=== PATIENT | female | born 1970 | race Caucasian/White ===

== ENCOUNTER 2024-02-10 13:59 | Outpatient (CLI) | payer BC, SELFPAY ==
[2024-02-10 14:33] LABS: Basophils # 0.1 K/mm3 (0-0.2); Basophils % 1.2 % (0.1-2.0); Eosinophils # 0.1 K/mm3 (0.0-0.4); Eosinophils % 1.3 % (0.1-12.0); Hematocrit 44.2 % (37.0-47.0); Hemoglobin 14.9 g/dL (12.2-16.2); Lymphocytes # 3.1 K/mm3 (0.7-4.5); Lymphocytes % 32.9 % (10-50); Mean Corpuscular HGB Conc 33.7 g/dL (31.8-35.4); Mean Platelet Volume 8.6 fl (7.4-10.4); Monocytes # 0.4 K/mm3 (0.1-1.0); Neutrophils # 5.7 K/mm3 (1.8-7.8); Neutrophils % 60.6 % (37.0-80.0); Platelet Count 291 K/mm3 (142-424); Red Blood Count 4.51 M/mm3 (4.20-5.40); Red Cell Distribution Width 13.1 % (11.5-17.5); White Blood Count 9.4 K/mm3 (4.8-10.8)
[2024-02-10 14:56] LABS: Chloride 107 mmol/L (98-107); Potassium 4.2 mmoL/L (3.5-5.1); Sodium 133 mmol/L (136-145)
[2024-02-10 14:59] LABS: Alanine Aminotransferase 24 U/L (12-78); Albumin/Globulin Ratio 1.7 (1.1-1.8); Alkaline Phosphatase 57 U/L (38-126); Anion Gap 5.2 mEq/L (5-15); Aspartate Amino Transferase 30 U/L (14-36); Bilirubin,Total 0.6 mg/dl (0.2-1.3); Blood Urea Nitrogen 12 mg/dl (7-17); Calcium 9.4 mg/dl (8.4-10.2); Carbon Dioxide 25 mmol/L (22.0-30.0); Estimated Glomerular Filt Rate 75 ml/min (>60); GFR (African American) 90 ML/MIN (>60); Globulin 2.4 g/dL (1.3-3.2); Glucose 100 mg/dl (74-100); Iron 137 ug/dL (37-170); Total Protein,Serum 6.4 g/dl (6.3-8.2)
[2024-02-10 15:15] LABS: 25-OH Vitamin D, Total 61.3 ng/mL (30-100)
[2024-02-10 15:34] LABS: Erythrocyte Sedimentation Rate 12 mm/hr (0-30)
[2024-02-10 15:36] LABS: Ferritin 73.9 ng/ml (11.1-264)
[2024-02-10 15:54] LABS: Total Iron Binding Capacity 330 ug/dL (265-497)
[2024-02-10 16:06] LABS: C-Reactive Protein 3.6 mg/L (0-4)
[2024-02-10 16:51] LABS: Vitamin B12 774 pg/mL (239-931)
[2024-02-12 20:08] LABS: QuantiFERON-TB Gold Plus Negative (Negative)
== END 2024-02-10 23:59 | disposition home or self-care (01) ==
LOC: LAB 14:00
PROVIDERS: PCP Internal Medicine; Visit Provider Nurse Practitioner Family
DX: K50.90 Crohn's disease, unspecified, without complications (principal)
CPT/HCPCS: 36415; 80053; 82306; 82607; 82728; 83540; 83550; 85025; 85651; 86140; 86480

== ENCOUNTER 2025-02-14 13:32 | Outpatient (CLI) | payer BC, SELFPAY ==
--- OUTSIDE RECORDS SUMMARY | 2025-02-14 13:35 | XMS_ITS | Clinical Summary ---
Author Organization [facility] Address [address] [place] [address] Care Team Providers Care Head Transfer Clerk Name Role Phone Eladia Call MD Primary Care Provider [phone] Allergies Active Allergy Reactions Criticality Noted Date Comments Penicillins Rash Low 12/11/2016 Sulfa Antibiotics Rash Low 12/11/2016 Medications albuterol sulfate HFA 108 (90 Base) MCG/ACT inhaler Inhale 2 puffs. 5 Active B Complex Vitamins (RA B-Complex) tablet Take by mouth Daily. Active cetirizine (zyrTEC) 10 MG tablet Take by mouth. Activ e Progesterone (PROMETRIUM) 200 MG capsule Take 1 capsule by mouth every night at bedtime. Active testosterone micronized powder 3mg compound cream 5 Active AIR CONDITIONING SPECIALIST Thyroid 60 MG tablet Take by mouth Daily. Active methylcellulose oral powder Take by mouth Daily. Active Humira, 2 Syringe, 40 MG/0.4ML Prefilled Syringe Kit injection 5 Active Lyllana 0.075 MG/24HR patch APPLY 1 PATCH TOPICALLY TO THE SKIN 2 TIMES EVERY WEEK 5 Active Active Problems No known active problems Resolved Problems Problem Noted Date Diagnosed Date Resolved Date Sciatica associated with dis order of lumbar spine 07/11/2024 08/09/2024 Encounters Date Type Department Care Team Description 12/08/2024 12:30 PM EDT Office Visit [facility] [address] [facility] [place] [address] Juve Colindres PA-C Chronic right-sided low back pain with right-sided sciatica (Primary Dx); Sciatica associated with disorder of lumbar spine; Lumbar disc herniation 12/08/2024 Travel from Last 3 Months Family History Medical History Relation Name Comments Cancer Brother 1 Abel Pham Cancer Brother 2 Abel Jr Heart disease Father Grzegorz Anxiety disorder Mother Beth Arthritis Mother Beth Depression Mother Beth Hyperlipidemia Mother Beth Hypertension Mother Beth Breast cancer Neg Hx Ovarian cancer Neg Hx Relation Name Status Comments Brother 1 Abel Jr Alive Brother 2 Abel Jr Alive Father Grzegorz Alive Mother Beth Alive Social History Tobacco Use Types Packs/Day Years Used Date Smoking Tobacco: Never Passive Smoke Exposure: Never Smokeless Tobacco: Never Tobacco Cessation:Counseling Given: Not Answered Alcohol Use Standard Drinks/Week Comments Yes 4 (1 standard drink = 0.6 oz pur e alcohol) Abuse Screen Answer Date Recorded Feels Unsafe at Home or Work/School no 08/09/2024 Feels Threatened by Someone no 07/31 Does Anyone Try to Keep You From Having Contact with Others or Doing Things Outside Your Home? no 08/09/2024 Physical Signs of Abuse Present no 08/09/2024 Housing Stability Answer Date Recorded Current Living Arrangements home 07/31 Potentially Unsafe Housing Conditions Not on renny e 08/09/2024 Disabilities Answer Date Recorded Difficulty Concentrating, Remembering or Making Decisions no 08/09/2024 Difficulty Managing Errands Independently no 08/09/2024 Education Answer Date Recorded Help with school or training? Not on file Preferred Language Mosotho 08/02/2024 Comments No Sex and Gender Information Value Date Recorded Sex Assigned at Female 10/06/2024 9:43 AM EDT Legal Sex Female 12:33 PM EDT Gender Identity Not on file Sexual Orientation Not on file Last Filed Vital Signs Vital Sign Reading Time Taken Comments Blood Pressure 120/60 12/08/2024 12:10 PM EDT Pulse 84 08/09/2024 1:45 PM EDT Temperature 36.5 C (97.7 F) 10/13/2024 10:30 AM EDT Respiratory Rate 16 08/09/2024 1:45 PM EDT Oxygen Saturation 96% 08/09/2024 1:45 PM EDT Inhaled Oxygen Concentration - - Weight 73.1 kg (161 lb 3.2 oz) 12/08/2024 12:10 PM EDT Height 162.6 cm (5' 4 ) 12/08/2024 12:10 PM EDT Body Mass Index 27.67 12/08/2024 12:10 PM EDT Plan of Treatment Health Maintenance Due Date Last Done Comments Annual Gynecologic Pelvic an d Breast Exam 1969 Pneumococcal Vaccine 50+ (1 of 2 - PCV) 1988 TDAP/TD VACCINES (1 - Tdap) 1988 PAP SMEAR 1990 COLOGUARD 2014 COLON CANCER SCREENING 5 YEA R SIGMOIDOSCOPY 2014 COLONOSCOPY 2014 [address] CANCER SCREENING 2014 CT COLONOGRAPHY 2014 FECAL OCCULT BLOOD TEST 2014 FIT Testing (1 year) 2014 ANNUAL PHYSICAL 12/11/2016 HEPATITIS C SCREENING 12/11/2016 ZOSTER VACCINE (1 of 2) 2019 INFLUENZA VACCINE 09/30/2024 11/19/2016 MAMMOGRAM 10/06/2026 10/06/2024, 08/31, 08/12/2023, Additional history exists Medical Devices Implanted Type Area Rivet Hole Machine Operator Device Identifier Shelf Expiration Date Model / Serial / Lot Hemost Abs Surgifoam Sz100 8x12 10mm - [id number] Implanted:Qty : 1 on 08/09/2024 by Umberto Guajardo MD at [facility] Implant Right: Spine Lumbar [employer] [id number] 05/25/2028 1974 / / [id number] Kt Seal Hemos Abs Floseal Matrx Fast/Prep 10ml - [id number] Implanted:Qty : 1 on 08/09/2024 by Umberto Guajardo MD at [facility] Implant Right: Spine Lumbar [facility] [id number] 04/04/2026 [id number] / / [id number] Procedures Procedure Name Priority Date/Time Associated Diagnosis Comments MAMMO DIAGNOSTIC DIGITAL TOMOSYNTHESIS RIGHT W CAD Routine 10/06/2024 2:45 PM EDT Abnormal mammogram from Last 3 Months or Most Recently Relevant to Health Maintenance Results * Mammo Diagnostic Digital Tomosynthesis Right With CAD (10/06/2024 2:45 PM EDT) Anatomical Region Laterality Modality Breast Right Mammography 10/06/2024 3:02 PM EDT Impressions 10/06/2024 3:03 PM EDT BI-RADS 1, negative exam. RECOMMENDATION: Annual routine screening mammography is advised. The standard false-negative rate of mammography is between 10% and 25%. Complex patterns or increased breast density will markedly elevate the false-negative rate of mammography. A results letter, in lay terminology, will be given to the patient at the conclusion of the exam. 10/06/2024 3:[address] Kevon Dominguez MD on Narrative 10/06/2024 3:03 PM EDT EXAMINATION:MAMMO DIAGNOSTIC DIGITAL TOMOSYNTHESIS RIGHT W CAD- HISTORY: 54-year-old female with an asymmetry in the right breast on screening mammography. Further evaluation. TECHNIQUE: Right 2D and 3D ML, spot compression MLO views were obtained. CAD was utilized. COMPARISON: Prior studies dating back to 10/15/2015. FINDINGS: The breast tissue is heterogeneously dense, which may obscure small masses. The previously described 6 mm asymmetry in the superior right breast on the MLO view, 5 cm from the nipple, does not persist on the additional diagnostic images. No worrisome masses, calcifications, or architectural distortion is identified in the right breast. Kevon Dominguez MD IMG MAMMOGRAPHY ORDERABLES Final Result from Last 3 Months or Most Recently Relevant to Health Maintenance Insurance [facility] Advance Directives Documents on File Type Date Recorded Patient Adoption Specialist Expl anation POWER OF FLUXER - SCAN 08/02/2024 8:37 AM POWER OF FLUXER 20 25 LIVING WILL - SCAN 07/10/2022 3:48 PM Care Teams Head Transfer Clerk Relationship Specialty Start Date End Date Eladia Call MD [address] [place] [address] PCP - General Internal Medicine 08/12/23
[2025-02-14 14:34] LABS: Hematocrit 44.3 % (37.0-47.0); Hemoglobin 15.0 g/dL (12.2-16.2); Immature Granulocytes % 0.3 %; Mean Corpuscular HGB Conc 33.9 g/dL (31.8-35.4); Mean Corpuscular Hemoglobin 32.3 pg (27.0-31.2); Mean Corpuscular Volume 95.3 fl (81-99); Nucleated Red Blood Cells % 0 %; Platelet Count 317 K/mm3 (142-424); Red Blood Count 4.65 M/mm3 (4.20-5.40); Red Cell Distribution Width-SD 44.6 fL; White Blood Count 9.8 K/mm3 (4.8-10.8)
[2025-02-14 15:18] LABS: Alanine Aminotransferase 25 U/L (12-78); Albumin Level 4.2 g/dl (3.5-5.0); Albumin/Globulin Ratio 1.6 (1.1-1.8); Alkaline Phosphatase 79 U/L (38-126); Anion Gap 10.2 mEq/L (5-15); Aspartate Amino Transferase 27 U/L (14-36); Bilirubin,Total 0.6 mg/dl (0.2-1.3); Blood Urea Nitrogen 14 mg/dl (7-17); Carbon Dioxide 26 mmol/L (22.0-30.0); Chloride 105 mmol/L (98-107); Creatinine,Serum 0.80 mg/dl (0.52-1.04); Estimated Glomerular Filt Rate 74 ml/min (>60); GFR (African American) 90 ML/MIN (>60); Globulin 2.7 g/dL (1.3-3.2); Potassium 4.2 mmoL/L (3.5-5.1); Sodium 137 mmol/L (136-145); Total Protein,Serum 6.9 g/dl (6.3-8.2)
[2025-02-14 15:24] LABS: C-Reactive Protein 4.5 mg/L (0-4)
[2025-02-14 16:05] LABS: Calcium 9.5 mg/dl (8.4-10.2); Glucose 89 mg/dl (74-100)
== END 2025-02-14 23:59 | disposition home or self-care (01) ==
LOC: LAB 13:33
PROVIDERS: PCP Internal Medicine; Visit Provider Internal Medicine Gastroenterology
DX: K74.69 Other cirrhosis of liver (principal); K50.10 Crohn's disease of large intestine without complications; Z79.899 Other long term (current) drug therapy; B19.20 Unspecified viral hepatitis C without hepatic coma
CPT/HCPCS: 36415; 80053; 80145; 82397; 85025; 85651; 86140